=== PATIENT | male | born 1980 ===

== ENCOUNTER 2017-10-06 22:21 | Emergency (ER) | payer OTHER ==
[2017-10-07] MEDS ORDERED: NORVASC ONE (00:43)
[2017-10-07] MEDS ORDERED: NORVASC PO ONE (00:49)
[2017-10-07 01:09] LABS: Basophils # (Auto) 0.1 K/mm3 (0.0-0.1); Basophils % (Auto) 0.9 % (0.0-1.8); Eosinophils # (Auto) 0.2 K/mm3 (0.0-0.4); Eosinophils % (Auto) 2.5 % (0.0-4.3); Hematocrit 42.5 % (35.5-45.6); Hemoglobin 13.8 gm/dl (11.8-15.2); Lymphocytes # (Auto) 1.8 K/mm3 (1.2-5.4); Lymphocytes % (Auto) 24.8 % (13.4-35.0); Mean Corpuscular HGB Conc 32 % (32-34); Mean Corpuscular Hemoglobin 28 pg (28-32); Mean Corpuscular Volume 86 fl (84-94); Monocytes # (Auto) 0.7 K/mm3 (0.0-0.8); Monocytes % (Auto) 9.4 % (0.0-7.3); Platelet Count 285 K/mm3 (140-440); Red Blood Count 4.97 M/mm3 (3.65-5.03); Red Cell Distribution Width 13.6 % (13.2-15.2)
[2017-10-07 01:32] LABS: Alanine Aminotransferase 12 units/L (7-56); Albumin 4.3 g/dL (3.9-5); BUN/Creatinine Ratio 10; Blood Urea Nitrogen 10 mg/dL (9-20); Calcium 8.9 mg/dL (8.4-10.2); Hemolysis Index 5
[2017-10-07 02:14] LABS: Bilirubin,Urine NEG (Negative); Blood,Urine NEG (Negative); Color,Urine Yellow (Yellow); Protein,Urine <15 mg/dL mg/dL (Negative); RBC,Urine < 1.0 /HPF (0.0-6.0); Urobilinogen,Urine < 2.0 mg/dL (<2.0); WBC,Urine < 1.0 /HPF (0.0-6.0)
--- NOTE | 2017-10-07 05:55 | Emergency Department Report ---
ED Abdominal Pain HPI - General Chief Complaint: Abdominal Pain Stated Complaint: STOMACH PAIN Time Seen by Provider: 10/07/17 04:36 Source: patient Mode of arrival: Ambulatory Limitations: No Limitations - History of Present Illness Initial Comments: Patient is here complaining of abdominal pain. Abdominal pain is on the left lower quadrant. This started yesterday morning of mild to moderate intensity and nonradiating with no aggravating or relieving factors. Patient states he is pain-free at this time. Said the pain went away when he came to the emergency room. Patient thinks he might have eaten something that caused the pain. MD Complaint: abdominal pain - Related Data Allergies Allergy/AdvReac Type Severity Reaction Status Date / Time No Known Allergies Allergy Unverified 10/07/17 00:13 ED Review of Systems ROS: Stated complaint: STOMACH PAIN Other details as noted in HPI Comment: All other systems reviewed and negative ED Past Medical Hx - Past Medical History Previous Medical History?: Yes Hx Hypertension: Yes - Surgical History Past Surgical History?: No - Social History Smoking Status: Current Every Day Smoker ED Physical Exam - General Limitations: No Limitations General appearance: alert, in no apparent distress - Head Head exam: Present: atraumatic, normocephalic - Eye Eye exam: Present: normal appearance - ENT ENT exam: Present: mucous membranes moist - Neck Neck exam: Present: normal inspection - Respiratory Respiratory exam: Present: normal lung sounds bilaterally. Absent: respiratory distress - Cardiovascular Cardiovascular Exam: Present: regular rate, normal rhythm. Absent: systolic murmur, diastolic murmur, rubs, gallop - GI/Abdominal GI/Abdominal exam: Present: soft, normal bowel sounds. Absent: tenderness - Rectal Rectal exam: Present: deferred - Back Exam Back exam: Present: normal inspection - Neurological Exam Neurological exam: Present: alert, oriented X3 - Psychiatric Psychiatric exam: Present: normal affect, normal mood - Skin Skin exam: Present: warm, dry, intact, normal color. Absent: rash ED Course Vital Signs 10/07/17 10/07/17 10/07/17 00:20 00:50 02:32 Temperature 98.6 F 98.6 F Pulse Rate 110 H 110 H 95 H Respiratory 20 20 Rate Blood Pressure 180/107 180/107 Blood Pressure 121/74 [Left] O2 Sat by Pulse 100 100 Oximetry 10/07/17 04:18 Temperature Pulse Rate 89 Respiratory Rate Blood Pressure Blood Pressure 125/71 [Left] O2 Sat by Pulse Oximetry ED Medical Decision Making - Lab Data Result diagrams: 10/07/17 00:49 10/07/17 00:49 Critical care attestation.: If time is entered above; I have spent that time in minutes in the direct care of this critically ill patient, excluding procedure time. ED Disposition Clinical Impression: Lower abdominal pain, unspecified Disposition: DC-01 TO HOME OR SELFCARE Is pt being admited?: No Does the pt Need Aspirin: No Condition: Stable Instructions: Abdominal Pain (ED) Referrals: BRISEIDA BARNES MD [Primary Care Provider] - 3-5 Days Time of Disposition: 05:56 Print Language: TAJIK
[2017-10-07 06:15] VITALS: BP 130/61
== END 2017-10-07 06:15 | disposition home or self-care (01) ==
LOC: ED 22:21
DX: R10.32 Left lower quadrant pain (principal); I10 Essential (primary) hypertension; F17.200 Nicotine dependence, unspecified, uncomplicated
CPT/HCPCS: 36415; 80053; 81001; 85025; 99283

== ENCOUNTER 2017-11-29 00:08 | Emergency (ER) | payer SELFPAY ==
[2017-11-29 00:13] VITALS: BP 145/82
[2017-11-29] MEDS ORDERED: BSS OU ONE (00:29)
[2017-11-29] MEDS ORDERED: TETRACAINE 0.5% OU ONE (00:29)
[2017-11-29] MEDS ORDERED: FUL-GLO OP ONE (00:29)
[2017-11-29] MEDS ORDERED: NORCO 5/325 ONE (00:55)
[2017-11-29] MEDS ORDERED: MOTRIN ONE (00:55)
[2017-11-29] MEDS ORDERED: MOTRIN PO ONE (00:56)
[2017-11-29] MEDS ORDERED: NORCO 5/325 PO ONE (00:56)
--- NOTE | 2017-11-29 00:58 | Emergency Department Report ---
ED Eye Problem HPI - General Chief complaint: Eye Problems Stated complaint: RT EYE IRRITATION Time Seen by Provider: 11/29/17 00:56 Source: patient Mode of arrival: Ambulatory Limitations: No Limitations - History of Present Illness Initial comments: 37-year-old male past medical history hypertension, patient takes Suboxone resents with complaint of irritation to right eye and slight left eye. Patient states that while walking home this evening he noticed people on a bridge above the walkway when he was walking. States that they were playing with shrubbery and that leaves and thorns may have fallen and hit his right eye. Patient primarily complaining of pain and discomfort right eye with some associated blurry vision. This occurred within the last 2 hours. Patient states his tetanus vaccination status is up-to-date as of 2018. Denies any other injuries to any other body parts. States he has foreign body sensation right eye. MD chief complaint: eye pain, eye redness, eye injury Onset/Timin -: hour(s), This evening Onset Description: sudden Location: right eye Place: street/outdoors If Injury: direct trauma Eye Symptoms: burning, redness, pain, itching, blurry vision Severity: moderate Severity scale (0 -10): 7 If Pain, Quality: sharp Consistency: constant Associated Symptoms: none Treatments Prior to Arrival: irrigated eye - Related Data Patient Tetanus UTD: Yes (2018) Previous Rx's Medication Instructions Recorded Last Taken Type Acetaminophen/Codeine [Tylenol 1 tab PO Q6H PRN #5 tab 11/29/17 Unknown Rx /Codeine # 3 tab] Ibuprofen [Motrin] 800 mg PO Q8HR PRN #20 tablet 11/29/17 Unknown Rx Tobramycin 0.3% [Tobrex] 1 drop OD Q4H #1 bottle 11/29/17 Unknown Rx Allergies Allergy/AdvReac Type Severity Reaction Status Date / Time No Known Allergies Allergy Unverified 10/07/17 00:13 ED Review of Systems ROS: Stated complaint: RT EYE IRRITATION Other details as noted in HPI ED Past Medical Hx - Past Medical History Previous Medical History?: Yes Hx Hypertension: Yes - Surgical History Past Surgical History?: No - Social History Smoking Status: Current Every Day Smoker Substance Use Type: Alcohol - Medications Home Medications: Home Medications Medication Instructions Recorded Confirmed Last Taken Type Acetaminophen/Codeine [Tylenol 1 tab PO Q6H PRN #5 tab 11/29/17 Unknown Rx /Codeine # 3 tab] Ibuprofen [Motrin] 800 mg PO Q8HR PRN #20 tablet 11/29/17 Unknown Rx Tobramycin 0.3% [Tobrex] 1 drop OD Q4H #1 bottle 11/29/17 Unknown Rx ED Physical Exam - General Limitations: No Limitations General appearance: alert, in no apparent distress - Head Head exam: Present: atraumatic, normocephalic - Eye Eye exam: Present: PERRL, EOMI Pupils: Present: normal accommodation - Expanded Eye Exam Expanded Pupils: Regular, Round: Bilateral, Reactive: Bilateral Sclera/Conjunctival: Injection: Bilateral (slightly more injection of conjunctiva right eye than left eye. No foreign body visualized on exam. Corneal abrasions and limbus of right eye at 12 o'clock position on fluorescien examined) Anterior chamber: Normal Inspection: Bilateral Visual acuity (R) = 20/: 30 Visual acuity (L) = 20/: 30 - ENT ENT exam: Present: normal exam, mucous membranes moist - Neck Neck exam: Present: normal inspection - Respiratory Respiratory exam: Present: normal lung sounds bilaterally. Absent: respiratory distress - Cardiovascular Cardiovascular Exam: Present: regular rate, normal rhythm. Absent: systolic murmur, diastolic murmur, rubs, gallop - GI/Abdominal GI/Abdominal exam: Present: soft, normal bowel sounds - Rectal Rectal exam: Present: deferred - Extremities Exam Extremities exam: Present: normal inspection - Back Exam Back exam: Present: normal inspection - Neurological Exam Neurological exam: Present: alert, oriented X3 - Psychiatric Psychiatric exam: Present: normal affect, normal mood - Skin Skin exam: Present: warm, dry, intact, normal color. Absent: rash ED Course Vital Signs 11/29/17 11/29/17 00:07 00:59 Temperature 98.3 F Pulse Rate 101 H Respiratory 18 18 Rate Blood Pressure 145/82 O2 Sat by Pulse 98 Oximetry ED Medical Decision Making - Medical Decision Making A/P: Corneal abrasion right eye 1-tetanus vaccine up-to-date as of 2018 as per patient 2-Motrin when necessary 3-both eyes irrigated with saline flushes. No fluorescein uptake left eye no visualized foreign body. Positive corneal abrasion right eye Tobramycin eyedrops for 5-7 days 4- I emphasized the importance of follow-up with ophthalmology to the patient. Patient's overall vision is 20/30 bilaterally. 20/30 right eye, 20/30 left eye. No foreign body visualized on fluorescein stain exam. No globe rupture on exam. Visible corneal abrasion to the limbus of right eye Critical care attestation.: If time is entered above; I have spent that time in minutes in the direct care of this critically ill patient, excluding procedure time. 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
== END 2017-11-29 01:58 | disposition home or self-care (01) ==
LOC: ED 00:08
DX: S05.01XA Injury of conjunctiva and corneal abrasion without foreign body, right eye, initial encounter (principal); I10 Essential (primary) hypertension; F17.200 Nicotine dependence, unspecified, uncomplicated; X58.XXXA Exposure to other specified factors, initial encounter; Y93.01 Activity, walking, marching and hiking; Y99.8 Other external cause status; Y92.89 Other specified places as the place of occurrence of the external cause
CPT/HCPCS: 99282; 99283